=== PATIENT | female | born 1970 | race Caucasian/White ===

== ENCOUNTER 2017-10-24 17:43 | Emergency (ER) | payer MEDICAID ==
[~2017-10-24] VITALS: Ht 157.5 cm; Wt 74.4 kg
[~2017-10-24 17:43] MED LIST: CLIN-73 PO
[2017-10-24 17:50] VITALS: Ht 157.5 cm; Wt 74.4 kg
[2017-10-24] MEDS ORDERED: KETOROLAC 30 MG INJ IM STA (19:20)
[2017-10-24] MEDS ORDERED: ACET1TAB40 PO (19:23)
[2017-10-24] MEDS ORDERED: PRED20TA PO (19:23)
[2017-10-24] MEDS ORDERED: AMOX500C2 PO (19:23)
--- NOTE | 2017-10-24 19:25 | ERD ---
ER Documentation Chief Complaint Chief Complaint RT EAR PAIN , SORE THROAT , DIZZINESS X 2 DAYS HPI This 47-year-old female presents with right ear pain and sore throat for last 2 days. She denies fevers, cough, although she does have some mild congestion. She denies vomiting, abdominal pain, weakness, deficits. ROS All systems reviewed and are negative except as per history of present illness. Medications Home Meds Active Scripts Acetaminophen with Codeine (Acetaminophen-Cod #3 Tablet) 1 Each Tablet, 1 TAB PO Q6H Y for PAIN, #10 TAB Prov:JADON JONES MD 10/24/17 Prednisone* (Prednisone*) 20 Mg Tab, 40 MG PO DAILY for 4 Days, TAB Start October 25, 2017 Prov:JADON JONES MD 10/24/17 Amoxicillin* (Amoxicillin*) 500 Mg Cap, 500 MG PO TID for 10 Days, CAP Prov:JADON JONES MD 10/24/17 Clindamycin Hcl* (Clindamycin Hcl*) 300 Mg Capsule, 450 MG PO Q8 for 7 Days, CAP Prov:GEOVANI MEDELLIN PA-C 06/24/15 Allergies Allergies: Coded Allergies: No Known Allergy (Unverified , 10/24/17) PMhx/Soc History of Surgery: No Anesthesia Reaction: No Hx Neurological Disorder: No Hx Respiratory Disorders: No Hx Cardiac Disorders: No Hx Alcohol Use: No Hx Substance Use: No Hx Tobacco Use: No Physical Exam Vitals Vital Signs Date Time Temp Pulse Resp B/P Pulse Ox O2 Delivery O2 Flow Rate FiO2 10/24/17 17:50 98.8 83 18 164/80 98 Physical Exam Const: [], [id number]. Head: Atraumatic Eyes: Normal Conjunctiva ENT: Normal External Ears, Nose and Mouth. TMs normal. There is tender infra-auricular lymphadenitis without mastoid tenderness. Oropharynx grossly normal. Neck: Full range of motion..~ No meningismus. Resp: Clear to auscultation bilaterally Cardio: Regular rate and rhythm, no murmurs Abd: Soft, non tender, non distended. Normal bowel sounds Skin: No petechiae or rashes Back: No midline or flank tenderness Ext: No cyanosis, or edema Neur: Awake and alert Psych: Normal Mood and Affect Results 24 hrs Current Medications Medications (Trade) Dose Ordered Sig/Natalie Route PRN Reason Start Time Stop Time Status Last Admin Dose Admin Ketorolac Tromethamine (Toradol) 30 mg ONCE STAT IM 10/24/17 19:20 10/24/17 19:22 DC Prednisone (Prednisone) 40 mg ONCE ONCE PO 10/24/17 19:30 10/24/17 19:31 Procedures/MDM She presents with right ear pain times lymphadenitis of the infra-auricular area. There is no evidence of mastoiditis, abscess, airway obstruction, sepsis. She will be treated with amoxicillin, short course prednisone and ibuprofen, #3, ENT and primary care follow-up. The patient was stable with no new complaints during the ER course. Clinically, there is no current evidence to suggest meningitis, sepsis, acute abdomen, pneumonia, acute coronary syndrome , pulmonary embolism, or any other emergent condition appearing to require further evaluation or hospitalization. The patient should certainly return for any new or worsening symptoms per the aftercare instructions. They should otherwise follow-up with her primary care doctor for reevaluation this week. Departure Diagnosis: Primary Impression: Ear pain, right Condition: Stable Patient Instructions: Lymphangitis Referrals: TAMARA BURNHAM MD, STEPHEN H MD Additional Instructions: LUCINDA IBUPROFEN 600MG CADA 6 HORAS TAMBIEN PARA DOLOR. JADON JONES MD Oct 24, 2017 19:25
[2017-10-24] MEDS ORDERED: predniSONE 20 MG TAB PO ONE (19:30)
[2017-10-24 20:33] VITALS: BP 130/80; PULSE 86; RESP 17; TEMP 98
--- NOTE | 2017-10-25 13:16 | EN ---
Date/Time of Note Date/Time of Note DATE: 10/25/17 TIME: 13:15 ER Progress Note Pharmacy called for prescription change. Patient has an allergy to penicillin. Prescription will be changed to [facility]. Spoke to CARLI Monique PA-C Oct 25, 2017 13:16
== END 2017-10-24 20:35 | disposition home or self-care (01) ==
LOC: FTE 17:43
DX: H92.01 Otalgia, right ear (principal)
CPT/HCPCS: 96372; J1885; J7512; Z7502

== ENCOUNTER 2019-08-13 16:36 | Emergency (ER) | payer MEDICAID ==
[~2019-08-13] VITALS: Ht 154.9 cm; Wt 83.4 kg
[~2019-08-13 16:36] MED LIST changes: +ACET1TAB40 PO; +AMOX500C2 PO; +AZIT250T PO; -CLIN-73 PO; +CLIN300C10 PO; +IBUP-1542 PO; +PRED20TA PO
[2019-08-13 17:52] VITALS: BP 130/71; PULSE 55; RESP 20; Ht 154.9 cm; Wt 83.4 kg
[2019-08-13] MEDS ORDERED: ACETAMINOPHEN 325 MG TAB PO ONE (19:30)
== END 2019-08-13 20:02 | disposition home or self-care (01) ==
LOC: FTE 16:36
DX: H61.22 Impacted cerumen, left ear (principal)
CPT/HCPCS: 69209; Z7502; Z7610